=== PATIENT | female | born 1980 | race Caucasian/White ===

== ENCOUNTER 2022-01-18 20:24 | Emergency (ER) | payer BC, SELFPAY ==
[2022-01-18 20:43] VITALS: BP 129/78; PULSE 102; RESP 18; TEMP 37.9; O2SAT 99
[2022-01-19 00:34] LABS: Alanine Aminotransferase 23 U/L (6-35); Albumin Level 4.3 g/dL (3.5-5.1); Alkaline Phosphatase 78 U/L (38-126); Anion Gap 10 mmol/L (8-16); Aspartate Amino Transferase 28 U/L (14-36); Bilirubin,Total 0.3 mg/dL (0.2-1.3); Blood Urea Nitrogen 10 mg/dL (7-17); Calcium 9.1 mg/dL (8.4-10.2); Carbon Dioxide 24 mmol/L (22-30); Chloride 101 mmol/L (98-107); Estimated CRCL calculation 90 ml/min; Estimated Glomerular Filt Rate > 60; Glucose 112 mg/dL (65-110); Lipase 67 U/L (23-300); Potassium 3.5 mmol/L (3.4-5.0); Sodium 135 mmol/L (137-145)
[2022-01-19 01:05] LABS: Basophils Percent Auto 0.5 % (0.2-1.2); Hematocrit 37.2 % (37.0-47.0); Immature Granulocyte Absolute 0.01 K/mm3 (0.00-0.031); Immature Granulocyte Percent A 0.2 % (0-0.5); Lymphocytes Absolute Auto 0.53 K/mm3 (0.9-3.2); Lymphocytes Percent Auto 12.6 % (18.3-44.2); Mean Corpuscular HGB Conc 32.3 g/dl (32-36); Mean Corpuscular Hemoglobin 27.6 pg (26-34); Mean Corpuscular Volume 85.5 fl (80-100); Mean Platelet Volume 10.9 fl (7.4-10.4); Monocytes Absolute Auto 0.3 K/mm3 (0.1-0.6); Monocytes Percent Auto 8.1 % (2.6-8.5); Neutrophils Absolute Auto 3.3 K/mm3 (1.3-6.7); Neutrophils Percent Auto 78.6 % (45.5-73.1); Platelet Count Result 229 k/mm3 (150-375); Red Blood Count 4.35 M/mm3 (4.2-5.4); Red Cell Distribution Width 14.5 % (11.5-14.5); White Blood Count 4.2 K/mm3 (4.5-10.0)
--- NOTE | 2022-01-19 01:33 | ECG_ITS ---
Measurements Intervals [place] Rate: 78 P: 20 AR: 147 QRS: 19 QRSD: 86 T: 5 QT: 346 QTc: 396 Interpretive Statements SINUS RHYTHM NONSPECIFIC ST AND T-WAVE ABNORMALITIES ABNORMAL ECG NO PREVIOUS ECG AVAILABLE FOR COMPARISON Electronically Signed On 01-19-2022 10:06:08 CDT by Jonnathan Nguyen M.D.
[2022-01-19] MEDS: ONDANSETRON INJ 4 MG/2 ML VIAL IV PUSH (01:48)
[2022-01-19] MEDS: SODIUM CHLORIDE 0.9% IV 1,000 ML 999 ML IV CONT (01:48)
[2022-01-19] MEDS: MORPHINE SULFATE (*CRX) 4 MG/ML INJ IV PUSH (01:49)
[2022-01-19 01:58] LABS: Appearance Urine Clear (Clear); Bilirubin Urine Negative (Negative); Blood Urine Negative (Negative); Color Urine Yellow (Yellow); Glucose Urine UA Negative (Negative); Ketones Urine 1+ mg/dL (Negative); Leukocyte Esterase Ur Negative LEU/UL (Negative); Nitrate Urine Negative (Negative); Protein Urine Negative (Negative); Specific Grav Ur 1.025 (1.001-1.035); Urobilinogen Urine 0.2 mg/dL (<2.0); pH Urine 5.5 (5.0-9.0)
[2022-01-19 02:02] LABS: Bacteria Urine Trace /hpf; Mucus Urine Rare /lpf; RBC Urine 0-2 /hpf (0-2); Squamous Epithelial Cell Urine Occasional /hpf (Few); WBC Urine 0-3 /hpf
[2022-01-19 02:18] LABS: Troponin I < 0.012 ng/mL (0.000-0.034)
[2022-01-19 02:25] LABS: Add Urine Microscopic? YES
[2022-01-19 02:39] LABS: Influenza A QL RT-PCR Negative (Negative); Influenza B QL RT-PCR Negative (Negative); SARS-CoV-2 RNA PCR Positive
[2022-01-19 02:41] LABS: SPREG INTERNAL CONTROL Positive; Serum Qual hCG Negative
[2022-01-19 03:09] VITALS: PULSE 84; RESP 23
[2022-01-19 03:33] VITALS: PULSE 88; RESP 20
--- NOTE | 2022-01-19 03:33 | ED.GENADULT ---
HPI - General Adult General Chief complaint: Nausea/Vomiting/Diarrhea Stated complaint: back pain Time Seen by Provider: 01/19/22 01:26 History of Present Illness HPI narrative: Patient 41-year-old female that presents to emergency department with chief complaint of body aches not feeling well abdominal discomfort chest discomfort and generalized malaise. Patient reports has been going on for couple days reports that is not improved by anything and reports that its not worsened by anything. Related Data Allergies Allergy/AdvReac Type Severity Reaction Status Date / Time No Known Allergies Allergy Mild Verified 01/19/22 01:29 Review of Systems Review of Systems: A 10 system review of systems was completed on the patient and is negative except for what is stated in the HPI. Nursing and ancillary documentation was reviewed. Exam Narrative: GENERAL: Well-appearing, well-nourished, and in no acute distress. HEAD: Normocephalic, atraumatic. EYES: PERRLA and EOMI. ENT: Nares clear, no rhinorrhea or epistaxis. Mucous membranes moist. NECK: Supple. CHEST: Clear to auscultation. No respiratory distress. HEART: Regular rate and rhythm. No murmur heard. Normal peripheral pulses. ABDOMEN: Soft, nontender, nondistended, normal active bowel sounds. EXTREMITIES: Normal range of motion. No edema. SKIN: Warm, dry, no rash. NEURO: No focal deficits. Alert and oriented x3. PSYCH: Normal mood and affect. Course Course Emergency Course: Patient was found to be positive for COVID-19. The patient received IV fluids pain medications and antiemetics. Patient is feeling much better at this time. Patient be discharged home with a prescription for Paxil of it [place]fr[place]ima and Tessalon. Vital Signs Vital signs: Vital Signs Temperature 37.9 C H 01/18/22 20:43 Pulse Rate 102 H 01/18/22 20:43 Respiratory Rate 18 01/18/22 20:43 Blood Pressure 129/78 01/18/22 20:43 Pulse Oximetry 99 01/18/22 20:43 Oxygen Delivery Room Air 01/18/22 20:43 Temperature 37.9 C H 01/18/22 20:43 Pulse Rate 102 H 01/18/22 20:43 Respiratory Rate 18 01/18/22 20:43 Blood Pressure 129/78 01/18/22 20:43 Pulse Oximetry 99 01/18/22 20:43 Oxygen Delivery Room Air 01/18/22 20:43 Medical Decision Making Vital Signs Vital Signs: Vital Signs Temperature 37.9 C H 01/18/22 20:43 Pulse Rate 102 H 01/18/22 20:43 Respiratory Rate 18 01/18/22 20:43 Blood Pressure 129/78 01/18/22 20:43 Pulse Oximetry 99 01/18/22 20:43 Oxygen Delivery Room Air 01/18/22 20:43 Temperature 37.9 C H 01/18/22 20:43 Pulse Rate 102 H 01/18/22 20:43 Respiratory Rate 18 01/18/22 20:43 Blood Pressure 129/78 01/18/22 20:43 Pulse Oximetry 99 01/18/22 20:43 Oxygen Delivery Room Air 01/18/22 20:43 Lab Data Result diagrams: 01/19/22 00:15 01/19/22 00:15 Labs: Lab Results 01/19/22 01/19/22 01/19/22 Range/Units 00:15 00:15 01:44 WBC 4.2 L (4.5-10.0) K/mm3 RBC 4.35 (4.2-5.4) M/mm3 Hgb 12.0 (12.0-15.0) g/dL Hct 37.2 (37.0-47.0) % MCV 85.5 (80-100) fl MCH 27.6 (26-34) pg MCHC 32.3 (32-36) g/dl RDW 14.5 (11.5-14.5) % Plt Count 229 (150-375) k/mm3 MPV 10.9 H (7.4-10.4) fl Immature Gran % (Auto) 0.2 (0-0.5) % Neut % (Auto) 78.6 H (45.5-73.1) % Lymph % (Auto) 12.6 L (18.3-44.2) % [place] % (Auto) 8.1 (2.6-8.5) % Eos % (Auto) 0.0 (0-4.4) % Baso % (Auto) 0.5 (0.2-1.2) % Lymph # (Auto) 0.53 L (0.9-3.2) K/mm3 [place] # (Auto) 0.3 (0.1-0.6) K/mm3 Eos # (Auto) 0.0 (0-0.3) K/mm3 Baso # (Auto) 0.0 (0.0-0.1) K/mm3 Abs Immat Gran (auto) 0.01 (0.00-0.031) K/mm3 Absolute Neuts (auto) 3.3 (1.3-6.7) K/mm3 Absolute Nucleated RBC 0.0 (0.0-0.012) K/mm3 Nucleated RBC % 0.0 (0.0-0.2) % Sodium 135 L (137-145) mmol/L Potassium 3.5 (3.4-5.0) mmol/L Chloride 101 (98-107) mmol/L Carbon
[2022-01-19 03:45] VITALS: PULSE 81; RESP 23
[2022-01-19 03:46] VITALS: BP 114/77; PULSE 71; RESP 25
== END 2022-01-19 03:55 | disposition home or self-care (01) ==
PROVIDERS: Emergency Medicine; Emergency Provider Emergency Medicine
DX: U07.1 COVID-19 (principal)
CPT/HCPCS: 36415; 80053; 81001; 81025; 83690; 84484; 84703; 85025; 87502; 93005; 96361; 96374; 96375; 99284; C9803; J2270; J2405; J7030; U0003; U0005

== ENCOUNTER 2022-10-26 13:08 | Emergency (ER) | payer OTHER, SELFPAY ==
[2022-10-26 13:21] VITALS: BP 118/78; PULSE 70; RESP 16; TEMP 36.1; O2SAT 100
--- NOTE | 2022-10-26 13:30 | ED.EAR ---
HPI - Ear Problem General Chief complaint: Ear Stated complaint: EARACHE/DRAINAGE Time Seen by Provider: 10/26/22 13:22 Source: patient and RN notes reviewed Mode of arrival: ambulatory Limitations: no limitations History of Present Illness HPI Narrative: Patient presents today complaining of a 2 day history of right ear pain with clear/yellow drainage. She now reports a clogging sensation. She has tried no [id number] treatment prior to arrival. Denies any recent swimming. Denies any additional URI symptoms. She does report tenderness to the external ear when she touches it. Related Data Home Medications Medication Instructions Recorded Confirmed levothyroxine 25 mcg tablet 25 mcg PO DAILY 09/02/22 (Unithroid) spironolactone 50 mg tablet 50 mg PO DAILY 09/02/22 ergocalciferol (vitamin D2) 1,250 10/26/22 mcg (50,000 unit) capsule levothyroxine 50 mcg tablet mcg 10/26/22 (Unithroid) Allergies Allergy/AdvReac Type Severity Reaction Status Date / Time No Known Allergies Allergy Mild Verified 10/26/22 13:16 Review of Systems Review of Systems: CONSTITUTIONAL: Denies body aches, fever, chills, or sweats. EYES: Denies visual changes, redness, or discharge. ENT: Denies rhinorrhea, congestion, sore throat. + right ear pain and clogging CARDIOVASCULAR: Denies chest pain, palpitations, or edema. RESPIRATORY: Denies cough or dyspnea. GASTROINTESTINAL: Denies abdominal pain, nausea, vomiting, or diarrhea. GENITOURINARY: Denies dysuria or hematuria. SKIN: Denies rash, itching, or wounds. MUSCULOSKELETAL: Denies back pain, joint pain, or myalgia. NEUROLOGIC: Denies headache, numbness, tingling, or weakness. PSYCH: Denies depression or anxiety. [facility] Past Medical History Medical History Anemia Anxiety Depression Diabetes Hypothyroid Obesity PCOS (polycystic ovarian syndrome) Surgical History Surgical History H/O tubal ligation (05/06/19) Bilateral tubal ligation History of delivery (05/06/19) primary c/s Breech History of cholecystectomy (~2009) History of hysteroscopy (12/05/17) Hscope D&C Family History Family History Father Diabetes mellitus CHF (congestive heart failure) Hypertension Mother Diabetes mellitus Heart disease Lefty's disease Social History Social History Smoking status: Never smoker Alcohol intake: current Substance use: current Substance use type: does not use Living arrangements: with family 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 HEAD: Normocephalic, atraumatic. EYES: EOMI. No redness or drainage. Conjunctivae normal. ENT: Mucous membranes pink and moist. Left TM and canal normal. Right TM normal. Right canal erythematous with mild edema and white material within the canal. Movement tragal tenderness on the right. NECK: Normal AROM. CHEST: No respiratory distress. EXTREMITIES: Normal range of motion. No edema. SKIN: Warm, dry, no rash. Capillary refill normal. Normal skin turgor. NEURO: No focal deficits. Alert and oriented x3. Gait steady. PSYCH: Normal affect. No signs of depression or anxiety. Course Course Level of Care: Express Care Visit Vital Signs Vital signs: Vital Signs Temperature 96.9 F L 10/26/22 13:21 Pulse Rate 70 10/26/22 13:21 Respiratory Rate 16 10/26/22 13:21 Blood Pressure 118/78 10/26/22 13:21 Pulse Oximetry 100 10/26/22 13:21 Temperature
== END 2022-10-26 13:45 | disposition home or self-care (01) ==
PROVIDERS: Emergency Provider Nurse Practitioner
DX: H60.501 Unspecified acute noninfective otitis externa, right ear (principal); E11.9 Type 2 diabetes mellitus without complications; E03.9 Hypothyroidism, unspecified; E28.2 Polycystic ovarian syndrome; E66.9 Obesity, unspecified; Z68.41 Body mass index [BMI] 40.0-44.9, adult
CPT/HCPCS: 99213; G0463

== ENCOUNTER 2022-11-07 07:57 | Outpatient (CLI) | payer OTHER, SELFPAY ==
--- NOTE | ~2022-11-07 | MM_ITS ---
EXAMINATION: MM screening deepti BI w jamila HISTORY: Screening mammogram TECHNIQUE: Craniocaudal and mediolateral oblique 3-D tomosynthesis images were obtained and synthetic 2-D images were generated. CAD analysis was submitted and interpreted. COMPARISON: No prior mammogram is available for comparison at this institution. BREAST PARENCHYMAL COMPOSITION: The breasts are almost entirely fatty. FINDINGS: There is no evidence of suspicious mass, calcification, or architectural distortion to sugg est malignancy in either breast. There has been no suspicious interval change. IMPRESSION: 1. No mammographic evidence of malignancy. 2. Recommend routine screening mammography in one year. BI-RADS Category 1: Negative Reviewed, dictated and finalized at location A.
== END 2022-11-07 07:58 | disposition home or self-care (01) ==
LOC: ANHIMG 07:58
PROVIDERS: Visit Provider Student in an Organized Health Care Education/Training Program
DX: Z12.31 Encounter for screening mammogram for malignant neoplasm of breast (principal)
CPT/HCPCS: 77063; 77067

== ENCOUNTER 2025-03-15 11:45 | Emergency (ER) | payer OTHER, SELFPAY ==
--- NOTE | ~2025-03-15 | XR_ITS ---
EXAMINATION: XR thoracic spine 3V DATE: 03/15/2025 13:30 INDICATION: Pain for 4 weeks. Trauma. TECHNIQUE: 4 images of the thoracic spine were obtained. COMPARISON: None. FINDINGS: Thoracic vertebral body heights and alignment are within normal limits. No compression fracture in the thoracic spine. Mild degenerative change in the thoracic spine. Evaluation of the upper thoracic spine is limited in the lateral projection due to overlapping structures. IMPRESSION: 1. No compression fracture in the thoracic spine. 2. Mild degenerative change in the thoracic spine. If symptoms persist or worsen, consider a short-term follow-up study or MRI imaging for further assessment. Reviewed, dictated and finalized at location Q. IMPRESSION: 1. No compression fracture in the thoracic spine. 2. Mild degenerative change in the thoracic spine. If symptoms persist or worsen, consider a short-term follow-up study or MRI michelle ging for further assessment.
[2025-03-15 11:50] VITALS: BP 117/100; PULSE 71; RESP 20; TEMP 36.6; O2SAT 99
[2025-03-15] MEDS: ACETAMINOPHEN 500 MG TABLET 1000 MG PO (12:37)
[2025-03-15] MEDS: IBUPROFEN 400 MG TABLET 800 MG PO (12:37)
[2025-03-15] MEDS: LIDOCAINE 5% PATCH 1 PATCH TRANSDERM (12:37)
--- NOTE | 2025-03-15 12:49 | ED.BACK ---
HPI - Back Pain/Injury General Chief Complaint: Back Pain/Injury Stated Complaint: upper back pain Time Seen by Provider: 03/15/25 11:51 Source: patient and RN notes reviewed Mode of arrival: ambulatory Limitations: no limitations History of Present Illness HPI Narrative: 44-year-old female patient presents to the ER complaining of mid back pain for approximately 4 weeks. 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 Patient reports mild pain at the time however over the last 2 weeks the pain is got significantly worse. Patient reports the pains in the middle of her upper back your thoracic spine. Patient reports pain is worse with turning and twisting of her trunk or lifting certain things. Patient took some Tylenol with some relief however is not taking also while for the pain. Patient denies any numbness, tingling, weakness, fevers, muscle spasms comparing other symptoms. Patient reports a history of anxiety. Patient denies any other significant past medical problems. Patient denies any falls or any other injuries. Related Data Home Medications ?Medication ?Instructions ?Recorded ?Confirmed ?Last Taken ?Type spironolactone 50 mg tablet 50 mg PO DAILY 09/02/22 Unknown History levothyroxine 50 mcg tablet mcg 10/26/22 Unknown History (Unithroid) [id number] intramuscular ea IM 01/28/23 Unknown History metformin 500 mg tablet,extended 500 mg PO DAILY 01/28/23 Unknown History release 24 hr Allergies Allergy/AdvReac Type Severity Reaction Status Date / Time No Known Allergies Allergy Mild Verified 03/15/25 11:55 Review of Systems Review of Systems: CONSTITUTIONAL: Denies fever, chills, or sweats. EYES: Denies visual changes, redness, or discharge. ENT: Denies rhinorrhea, congestion, sore throat, or otalgia. CARDIOVASCULAR: Denies chest pain, palpitations, or edema. RESPIRATORY: Denies cough or dyspnea. GASTROINTESTINAL: Denies abdominal pain, nausea, vomiting, or diarrhea. GENITOURINARY: Denies dysuria or hematuria. SKIN: Denies rash or itching. MUSCULOSKELETAL: Positive for mid back pain. Negative for neck pain, joint pain, or myalgia. NEUROLOGIC: Denies headache, numbness, or weakness. PSYCHIATRIC: Denies anxiety or depression. All other systems reviewed are negative, except as documented in HPI. [facility] Past Medical History Medical History Lefty's thyroiditis Obesity Hypothyroid PCOS (polycystic ovarian syndrome) Diabetes Depression Anxiety Anemia Surgical History Surgical History H/O tubal ligation (05/06/19) Bilateral tubal ligation History of cholecystectomy (~2009) History of hysteroscopy (12/05/17) Hscope D&C History of delivery (05/06/19) primary c/s Breech Family History Family History Father Diabetes mellitus CHF (congestive heart failure) Hypertension Mother Diabetes mellitus Heart disease Lefty's disease Social History Social History Smoking status: Never smoker Alcohol intake: current Substance use: current Substance use type: does not use Living arrangements: with family 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 There is no relevant family history pertinent to the patient complaint. Exam Narrative: GENERAL: This is a well-nourished, well-developed adult, in no apparent distress. They are non ill-appearing, nontoxic appearing. HEAD: normocephalic, atraumatic. EYES: Sclera clear/white. Conjunctiva normal. Vision is grossly intact. Extraocular movements intact EARS: External ears normal, Hearing grossly intact. NOSE: External nose normal THROAT: Mucous membranes moist, NECK: Neck supple, non-tender without lymphadenopathy, masses or thyromegaly. CARDIOVASCULAR: Regular rate and rhythm without murmurs, gallops, or rubs. RESPIRATORY: Respiratory rate normal, respiratory effort nonlabored, no respiratory distress SKIN: warm, Dry, intact with no suspicious lesions or rash, good texture and turgor. NEURO: awake, alert, and oriented to person, place and time. There were no obvious focal neurologic abnormalities. EXTREMITIES: No joint tenderness, effusion, or edema noted. BACK: No CVA tenderness. No obvious deformity. There is thoracic point tenderness, no crepitus or step-offs. No cervical or lumbar point tenderness, crepitus or step-offs. There is pain throughout her mid back as well. Course Course Emergency Course: Portions of this record may have been created with voice recognition software Vital Signs Vital signs: Vital Signs Temperature 97.8 F 03/15/25 11:50 Pulse Rate 71 03/15/25 11:50 Respiratory Rate 20 03/15/25 11:50 Blood Pressure 117/100 H 03/15/25 11:50 Pulse Oximetry 99 03/15/25 11:50 Oxygen Delivery Room Air 03/15/25 11:50 Temperature 97.8 F 03/15/25 11:50 Pulse Rate 71 03/15/25 11:50 Respiratory Rate 20 03/15/25 11:50 Blood Pressure 117/100 H 03/15/25 11:50 Pulse Oximetry 99 03/15/25 11:50 Oxygen Delivery Room Air 03/15/25 11:50 Reviewed MDM - Back Pain/Injury MDM Narrative Medical decision making narrative: Will obtain imaging of her back given her thoracic back pain. Appears likely to be musculoskeletal in nature. Patient given Tylenol ibuprofen, lidocaine patch for pain. X-ray of thoracic spine shows mild degenerative changes, no other fractures or acute findings. Patient says markedly improvement with pain medication and lidocaine patch. Will send patient home with muscle relaxers, lidocaine patches and advised to take Tylenol and ibuprofen as directed. Discussed physical exam findings. Advised supportive measures and signs/symptoms to go to the ER. Pt is appropriate for outpt treatment and f/u. Differential Diagnosis Differential diagnosis: Likely thoracic back pain and other (Thoracic radiculopathy, thoracic back strain) Lab Data Attestation: I reviewed the patient's lab results. Labs: Lab Results 03/15/25 Range/Units 13:42 POC Urine HCG, Qual Negative (Negative) Imaging Data Radiologist's impression: ITS Impressions Thoracic Spine X-Ray 03/15/25 13:42 IMPRESSION: 1. No compression fracture in the thoracic spine. 2. Mild degenerative change in the thoracic spine. If symptoms persist or worsen, consider a short-term follow-up study or MRI imaging for further assessment. Critical Care Time Critical Care Time Critical Care Time: No Discharge Plan Discharge Clinical Impression: Mid back pain Patient Disposition: Home Condition: Stable Instructions: Thoracic Back Strain (ED) Additional Instructions: The x-ray of your thoracic spine reveals mild degenerative changes otherwise no acute findings or fractures. Take the muscle relaxer as directed. Do not drive or operate heavy machine, or work while taking the medication as it can make you drowsy. Use the lidocaine patches as directed. You may take ibuprofen 600 mg to 800 mg every 6-8 hours. Do not exceed more than 800 mg of ibuprofen per dose. Do not exceed more than 3200 mg ibuprofen in a day. You may take up to 1000 mg Tylenol every 6-8 hours. Do not exceed 1000 mg per dose, do exceed more than 4000 mg of Tylenol in a day. Please follow-up with your primary care provider if pain persist Rest. Avoid pushing, pulling, lifting --running or excessive walking-- or anything that worsens the symptoms Go to the emergency department if you develop any numbness or tingling to your groin, weakness in your legs, or any loss of bowel or bladder function. 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
--- NOTE | 2025-03-15 13:12 | PC.NURSE ---
poison control called
[2025-03-15 13:44] LABS: BEDSIDEPREGUCG Negative (Negative)
--- OUTSIDE RECORDS SUMMARY | 2025-03-15 14:40 | XMS_ITS | Clinical Summary ---
Author Organization [facility] Address [address] [place] [address] Care Team Providers Care Aquaculture Worker Name Role Phone Jadyn Zamora MD Primary Care Provider [phone] Source Comments [facility],non-owned Affiliates and Associated Physician Practices is amultiple site organization consisting of ambulatory clinics and hospital sitesin [place], [place], [place] and [place]. This disclosure is being madepursuant to the Care Everywhere program and may not contain all information available regarding this patient. Last updated 18.[facility] Allergies No known active allergies Medications * Be aware that medications may not be up to date on this document. Alwaysverify current medications with the patient. 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3 F) 11/27/2016 5:06 PM CDT Respiratory Rate 14 11/27/2016 5:06 PM CDT Oxygen Saturation 98% 11/27/2016 5:06 PM CDT Inhaled Oxygen Concentration - - Weight 97.5 kg (215 lb) 11/27/2016 5:06 PM CDT Height 154.9 cm (5' 1) 11/27/2016 5:06 PM CDT Body Mass Index 40.62 11/27/2016 5:06 PM CDT Plan of Treatment Health Maintenance Due Date Last Done Comments LIPID TESTING 1982 MAMMOGRAM 1982 HIV SCREENING 1997 HEPATITIS C SCREENING 05/12/2000 DTAP/TDAP/TD VACCINES (1 - Tdap) 2001 HEPATITIS B VACCINE (1 of 3 - 19+ 3-dose series) 2001 HPV VACCINE (1 - 3-dose SCDM series) 2009 DEPRESSION SCREENING 05/26/2024 COVID-19 VACCINE (1 - 2023-2 5 season) 2025 INFLUENZA VACCINE (#1) 2025 ZOSTER VACCINE (1 of 2) 2032 HIB VACCINE Aged Out No longer eligi ble based on patient's age to complete this topic MENINGOCOCCAL (Group B) VACC INE SHARED DECISION-MAKING Aged Out No longer eligibl e based on patient's age to complete this topic MENINGOCOCCAL GROUPS A/C/Y/W VACCINE Aged Out No longer eligible b ased on patient's age to complete this topic PNEUMOCOCCAL VACCINE Aged Out No long er eligible based on patient's age to complete this topic Insurance [employer] [place] Care Teams Aquaculture Worker Relationship Specialty Start Date End Date Jadyn Zamora MD [address] [place] [address] PCP - General Internal Medicine 11/27/16
--- OUTSIDE RECORDS SUMMARY | 2025-03-15 14:40 | XMS_ITS | Clinical Summary ---
Author Organization [address] Address [address] [place] [phone] Care Team Providers Care Artist Suspect Name Role Phone Unknown, Notinfile Primary Care Provider Unavail able Allergies No known active allergies Medications spironolactone (ALDACTONE) 100 mg tablet Take 1 tablet (100 mg total) by mouth 2 (two) times a day Active buPROPion (WELLBUTRIN) 100 mg tablet Take 1 tablet (100 mg total) by mouth daily Active Social History Tobacco Use Types Packs/Day Years Used Date Smoking Tobacco: Never Assessed Comments Unknown Sex and Gender Information Value Date Recorded Sex Assigned at Not on file Legal Sex Female 9:33 AM CDT Gender Identity Not on file Sexual Orientation Not on file Last Filed Vital Signs Vital Sign Reading Time Taken Comments Blood Pressure 124/80 03/15/2025 11:00 AM CDT Pulse 81 03/15/2025 11:00 AM CDT Temperature 36.5 C (97.7 F) 03/15/2025 11:00 AM CDT Respiratory Rate 16 03/15/2025 11:00 AM CDT Oxygen Saturation 98% 03/15/2025 11:00 AM CDT Inhaled Oxygen Concentration - - Weight 93 kg (205 lb) 03/15/2025 11:00 AM CDT Height - - Body Mass Index - - Plan of Treatment Health Maintenance Due Date Last Done Comments Breast Cancer Screening-Mammogram 1982 Cervical Cancer Screening 1982 Depression Screening 1982 Hepatitis C Screening 1982 Varicella Vaccines (1 of 2 - 13+ 2-dose series) 1995 Hepatitis B Screening 2000 Regular Well Visit/Exam 18-64 2000 HPV Vaccines (1 - 3-dose SCDM series) 2009 Covid-19 Vaccine (3 - 2025-26 season) 2025 03/30/2021, 02/23/2021 Influenza Vaccine (#1) 2025 DTaP/Tdap/Td Vaccine (6 - Td or Tdap) 05/08/2029 05/08/2019, 09/22/1989, 06/02/1986, Additional history exists Pneumococcal vaccine <65 Aged Out No longer eligible based on patient's age to complete this topic Insurance [employer] OPEN ACCESS Care Teams Artist Suspect Relationship Specialty Start Date End Date Unknown, Notinfile PCP - General 03/15/25
--- OUTSIDE RECORDS SUMMARY | 2025-03-15 15:06 | XMS_ITS | Clinical Summary ---
Author Organization [address] Address [address] [place] [phone] Care Team Providers Care Fuse Cup Expander Name Role Phone Unknown, Notinfile Primary Care [...] patient's age to complete this topic Insurance [employer] OPEN ACCESS Care Teams Fuse Cup Expander Relationship Specialty Start Date End Date Unknown, Notinfile PCP - General 03/15/25
--- OUTSIDE RECORDS SUMMARY | 2025-03-15 15:06 | XMS_ITS | Clinical Summary ---
Author Organization [facility] [employer] Address [address] [place] [address] Care Team Providers Care Monitoring Manager Name Role Phone Jadyn Zamora MD Primary Care Provider [phone] Source Comments [facility] [employer]non-owned Affiliates and Associated Physician Practices is amultiple site organization consisting of ambulatory clinics and hospital sitesin [place], [place], [place] and [place]. This disclosure is being madepursuant to the Care Everywhere program and may not contain all information available regarding this patient. Last updated 18.[facility] [employer] Allergies No known active allergies Medications * Be aware that medications may not be up to date on this document. Alwaysverify current medications with the patient. fluticasone propionate (FLONASE) 50 MCG/ACT nasal sprayIndication s:Nasal Signs and Symptoms [place] 2 Sprays into each nostril once daily [...] - [place] Care Teams Monitoring Manager Relationship Specialty Start Date End Date Jadyn Zamora MD [address] [place] [phone] PCP - General Internal Medicine 11/27/16
== END 2025-03-15 14:27 | disposition home or self-care (01) ==
DX: S29.9XXA Unspecified injury of thorax, initial encounter (principal); E06.3 Autoimmune thyroiditis; E28.2 Polycystic ovarian syndrome; E11.9 Type 2 diabetes mellitus without complications; F32.A Depression, unspecified; F41.9 Anxiety disorder, unspecified; Z86.2 Personal history of diseases of the blood and blood-forming organs and certain disorders involving the immune mechanism; Z90.49 Acquired absence of other specified parts of digestive tract; X50.0XXA Overexertion from strenuous movement or load, initial encounter; Z79.84 Long term (current) use of oral hypoglycemic drugs
CPT/HCPCS: 72072; 81025; 99283; A9270